=== PATIENT | female | born 1965 | race Two or more races ===

== ENCOUNTER → 2022-04-18 | Outpatient (REF) | payer OTHER | LOC: M PLALAB 15:49 | PROVIDERS: ATTEND Nurse Practitioner Family | DX: Z12.4 Encounter for screening for malignant neoplasm of cervix (principal) | CPT/HCPCS: 87624; G0123 ==

== ENCOUNTER → 2023-04-15 | Outpatient (CLI) | payer OTHER | LOC: M WHC 15:19 | PROVIDERS: ATTEND Nurse Practitioner Family | DX: Z12.31 Encounter for screening mammogram for malignant neoplasm of breast (principal) | CPT/HCPCS: 76642; 77065; G0279 ==